=== PATIENT | male | born 1970 | race Caucasian/White ===

== ENCOUNTER 2019-10-09 02:47 | Emergency (ER) | payer SELFPAY ==
[2019-10-09 02:59] VITALS: BP 140/103; PULSE 86
--- NOTE | 2019-10-09 03:00 | EDM.PDOC ---
ED HPI GENERAL MEDICAL PROBLEM - General Chief Complaint: Gastrointestinal Problem Stated Complaint: ABDOMINAL PAIN/VOMITING/DIARRHEA Time Seen by Provider: 10/09/19 02:58 - History of Present Illness INITIAL COMMENTS - FREE TEXT/NARRATIVE: 49-year-old male presents the emergency room with nausea vomiting and diarrhea as well as some abdominal discomfort. This patient developed the symptoms around midnight tonight and he has had frequent vomiting and diarrhea. He just could not keep anything down. He has had some abdominal discomfort usually just before and after throwing up. Patient currently is not taking any medications he is unaware of any unusual food exposure. Patient has not had any burning or frequency with urination. Prior to the onset of the diarrhea he was not having any bowel problems. - Related Data Allergies Allergy/AdvReac Type Severity Reaction Status Date / Time No Known Allergies Allergy Verified 10/09/19 02:57 Home Meds: Home Meds Ondansetron [Zofran ODT] 4 mg PO Q6H PRN #15 tab.dis #2 Samples 10/09/19 [Rx] Past Medical History - Past Health History Medical/Surgical History: Denies Medical/Surgical History ED ROS GENERAL - Review of Systems Review Of Systems: See Below Constitutional: Reports: No Symptoms HEENT: Reports: No Symptoms Respiratory: Reports: No Symptoms Cardiovascular: Reports: No Symptoms Endocrine: Reports: No Symptoms GI/Abdominal: Reports: Abdominal Pain, Diarrhea, Nausea, Vomiting. Denies: No Symptoms : Reports: No Symptoms Musculoskeletal: Reports: No Symptoms Neurological: Reports: No Symptoms ED EXAM, GI/ABD - Physical Exam Exam: See Below Exam Limited By: No Limitations General Appearance: Alert, No Apparent Distress Head: Atraumatic, Normocephalic Neck: Normal Inspection, Supple, Non-Tender, Full Range of Motion Respiratory/Chest: No Respiratory Distress, Lungs Clear, Normal Breath Sounds Cardiovascular: Regular Rate, Rhythm, No Edema, No Murmur GI/Abdominal Exam: Normal Bowel Sounds, Soft, Non-Tender (He has no discomfort at the time of my exam). No: Guarding, Rigid, Rebound Back Exam: Normal Inspection, CVA Tenderness (L), CVA Tenderness (R) Extremities: Normal Inspection, No Pedal Edema Neurological: Alert, Oriented, Normal Cognition Course - Vital Signs Last Recorded V/S: Last Vital Signs Temp 36.1 C 10/09/19 02:58 Pulse 86 03/31/20 02:58 Resp 16 10/09/19 02:58 BP 140/103 H 10/09/19 02:58 Pulse Ox 97 10/09/19 02:58 - Orders/Labs/Meds Orders: Active Orders 24 hr Category Date Time Status Ondansetron [Zofran ODT] Med 10/09/19 04:29 Once 4 mg PO ONETIME ONE Medication Orders Ondansetron HCl (Zofran Odt) 4 mg PO ONETIME ONE Stop: 10/09/19 04:30 Labs: Laboratory Tests 10/09/19 10/09/19 Range/Units 03:18 03:18 WBC 13.83 H (4.23-9.07) K/mm3 RBC 5.01 (4.63-6.08) M/mm3 Hgb 15.7 (13.7-17.5) gm/dl Hct 45.2 (40.1-51.0) % MCV 90.2 (79.0-92.2) fl MCH 31.3 (25.7-32.2) pg MCHC 34.7 (32.2-35.5) g/dl RDW Std Deviation 40.4 (35.1-43.9) fL Plt Count 302 (163-337) K/mm3 MPV 8.2 L (9.4-12.3) fl Neut % (Auto) 85.0 H (34.0-67.9) % Lymph % (Auto) 6.7 L (21.8-53.1) % [place] % (Auto) 7.1 (5.3-12.2) % Eos % (Auto) 0.9 (0.8-7.0) Baso % (Auto) 0.1 (0.1-1.2) % Neut # (Auto) 11.76 H (1.78-5.38) K/mm3 Lymph # (Auto) 0.92 L (1.32-3.57) K/mm3 [place] # (Auto) 0.98 H (0.30-0.82) K/mm3 Eos # (Auto) 0.13 (0.04-0.54) K/mm3 Baso # (Auto) 0.01 (0.01-0.08) K/mm3 Manual Slide Review Abnormal smear Sodium 142 (136-145) mEq/L Potassium 3.8 (3.5-5.1) mEq/L Chloride 104 (98-107) mEq/L Carbon Dioxide 26 (21-32) mEq/L Anion Gap 15.8 H (5-15) BUN 14 (7-18) mg/dL Creatinine 0.9 (0.7-1.3) mg/dL Est Cr Clr Drug Dosing 91.81 mL/min Estimated GFR (MDRD) > 60 (>60) mL/min BUN/Creatinine Ratio 15.6 (14-18) Glucose 120 H (74-106) mg/dL Calcium 9.0 (8.5-10.1) mg/dL Total Bilirubin 0.4 (0.2-1.0) mg/dL AST 17 (15-37) U/L ALT 43 (16-63) U/L Alkaline Phosphatase 62 (46-116) U/L Total Protein 7.7 (6.4-8.2) g/dl Albumin 4.1 (3.4-5.0) g/dl Globulin 3.6 gm/dL Albumin/Globulin Ratio 1.1 (1-2) Lipase 103 (73-393) U/L Meds: Medications Generic Name Dose Route Start Last Admin Trade Name Freq PRN Reason Stop Dose Admin Ondansetron HCl 4 mg 10/09/19 04:29 Zofran Odt PO 10/09/19 04:30 ONETIME ONE Discontinued Medications Generic Name Dose Route Start Last Admin Trade Name Freq PRN Reason Stop Dose Admin Lactated Ringer's 1,000 mls @ 999 mls/hr 10/09/19 03:06 10/09/19 03:18 Ringers, Lactated IV 10/09/19 04:06 999 mls/hr .BOLUS ONE Administration Ondansetron HCl 4 mg 10/09/19 03:06 10/09/19 03:18 Zofran IVPUSH 10/09/19 03:07 4 mg ONETIME ONE Administration - Re-Assessments/Exams Free Text/Narrative Re-Assessment/Exam: 10/09/19 04:30 Abdominal pain gone he is doing much better with 4 mg Zofran and a liter of LR. We will give 4 mg of Zofran ODT now then a prescription to fill later today. Departure - Departure Time of Disposition: 04:31 Disposition: Home, Self-Care 01 Clinical Impression: Gastroenteritis - Discharge Information Referrals: PCP,None [Primary Care Provider] - Forms: ED Department Discharge, ED Return to Work/School Form Additional Instructions: Return to the emergency room with any questions problems or worsening symptoms. Clear liquid diet for the next 24 hours then slowly advance as tolerated. Use the Zofran as needed for nausea and vomiting. Sepsis Event Note - Focused Exam Vital Signs: Vital Signs Temp Pulse Resp BP Pulse Ox 10/09/19 02:58 36.1 C 86 16 140/103 H 97 Date Exam was Performed: 10/09/19 Time Exam was Performed: 04:30 - My Orders Last 24 Hours: My Active Orders 10/09/19 04:29 Ondansetron [Zofran ODT] 4 mg PO ONETIME ONE - Assessment/Plan Last 24 Hours: My Active Orders 10/09/19 04:29 Ondansetron [Zofran ODT] 4 mg PO ONETIME ONE
[2019-10-09] MEDS ORDERED: Lactated Ringers 1,000 ML IV ONE (03:06)
[2019-10-09] MEDS ORDERED: Ondansetron 4 MG/2 ML SDV IVPUSH ONE (03:06)
[2019-10-09] MEDS ORDERED: Ondansetron 4 MG Tab.DIS PO ONE (04:29)
== END 2019-10-09 04:43 | disposition home or self-care (01) ==
LOC: JD.ED 02:47
DX: K52.9 Noninfective gastroenteritis and colitis, unspecified (principal)
CPT/HCPCS: 36415; 80053; 83690; 85025; 96361; 96374; 99284; J2405; J7120; 99283

== ENCOUNTER 2020-02-16 13:52 | Emergency (ER) | payer OTHER ==
--- NOTE | 2020-02-16 14:34 | EDM.PDOC ---
ED HPI GENERAL MEDICAL PROBLEM - General Chief Complaint: Eye Problems Stated Complaint: FB IN EYE Time Seen by Provider: 02/16/20 14:34 Source of Information: Reports: Patient History Limitations: Reports: No Limitations - History of Present Illness INITIAL COMMENTS - FREE TEXT/NARRATIVE: 50-year-old male presents to the ED with foreign body sensation in his right eye since mid yesterday. Patient states he was grinding metal and in spite of wearing eye protection and a face shield a piece of metal did seem to enter his right eye. He flushed his eye vigorously last night once he got home from work and did think that he did get out of small metallic foreign body. However the eye continues to hurt overnight with excessive tearing and is extremely photosensitive today. Continues to have foreign body sensation right eye. Not wear contact lenses. Does wear eyeglasses. 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 Denies: Activity, Exercise (At the light.), Lifting, Sick Contact Associated Symptoms: Reports: No Other Symptoms Treatments PLANNING LEAD: Reports: Other (see below) (None.) Right Eye Pain Score (Numeric/FACES): 8 - Related Data Allergies Allergy/AdvReac Type Severity Reaction Status Date / Time No Known Allergies Allergy Verified 02/16/20 14:34 Home Meds: Home Meds . [No Known Home Meds] 02/16/20 [History] Past Medical History - Past Health History Medical/Surgical History: Denies Medical/Surgical History Social & Family History - Living Situation & Occupation Living situation: Reports: Occupation: Employed ED ROS GENERAL - Review of Systems Review Of Systems: See Below Constitutional: Reports: No Symptoms HEENT: Reports: Glasses Respiratory: Reports: No Symptoms Cardiovascular: Reports: No Symptoms Endocrine: Reports: No Symptoms GI/Abdominal: Reports: No Symptoms : Reports: Frequency Musculoskeletal: Reports: Shoulder Pain, Back Pain Skin: Reports: No Symptoms Neurological: Reports: No Symptoms Psychiatric: Reports: No Symptoms Hematologic/Lymphatic: Reports: No Symptoms Immunologic: Reports: No Symptoms ED EXAM GENERAL W FULL EYE - Physical Exam Exam: See Below Exam Limited By: No Limitations General Appearance: Alert, WD/WN, Mild Distress, Other (Keeps his eye on the right side nearly closed. It is very light sensitive. Temperature is 36.4. Pulse 96 and sinus respiratory is 20 with O2 sats of 98% on room air BP elevated 153 112 but did come down to 142 over) Eye Exam: Right Eye: Conjunctival Injection (Marked), Foreign Body (Metallic foreign body appreciated that 2 o'clock position 4 mm from the limbus.) Eyelids: Right: Normal Appearance, Lid Everted for Exam (Nor foreign bodies identified) Conjunctiva & Sclera: Right: Injected (Moderate.) Cornea Exam: Right: Foreign Body (Foreign body at the 2 o'clock position of the right cornea.) Extraocular Movements: Bilateral: Intact Pupils: Normal Accommodation Pupillary Size: Bilateral: 5 mm Pupillary Reaction: Bilateral: Brisk Anterior Chamber: Bilateral: Normal Appearance ED EYE w/ Add Procedure - Eye Procedure Alcaine Drops Administered: Yes Eye FB Removal: Removal w/ Cotton Swab (Part of the foreign body was removed with a cotton swab but the rest remain), Removal w/ Needle (The metallic foreign body came out in 4 separate pieces using a 23-gauge ne), Other (Slit lamp was utilized to make sure there was no residual rust ring and non) Antibiotic Oinment/Drps Admin: Right Eye Course - Vital Signs Last Recorded V/S: Last Vital Signs Temp 36.4 C 02/16/20 14:31 Pulse 96 02/16/20 14:31 Resp 20 02/16/20 14:31 BP 153/112 H 02/16/20 14:31 Pulse Ox 98 02/16/20 14:31 - Orders/Labs/Meds Meds: Medications Discontinued Medications Generic Name Dose Route Start Last Admin Trade Name Freq PRN Reason Stop Dose Admin Proparacaine HCl 10 ml 02/16/20 14:45 02/16/20 14:42 Proparacaine 0.5% Ophth Soln EYERT 02/16/20 14:46 2 drop ONETIME ONE Administration Proparacaine HCl Confirm 02/16/20 14:36 02/16/20 14:42 Proparacaine 0.5% Ophth Soln Administered 02/16/20 14:37 Not Given Dose 15 ml .ROUTE .English TVMED ONE - Radiology Interpretation Free Text/Narrative:: 50-year-old male presents to the ED with foreign body sensation right eye. This occurred yesterday afternoon while grinding metal. Examination does confirm a metallic foreign body embedded in the cornea at the 2 o'clock position. It was partially removed with a moistened Q-tip under proparacaine topical anesthesia. The rest had to be removed with a 23-gauge needle. Inspection of the cornea afterwards with a slit lamp revealed no foreign bodies or residual rust rings. Patient will be treated with ketorolac eyedrops 2 drops every 6 hours as needed for relief of pain and Cipro ophthalmic drops 2 drops every 8 hours for the next 2 days to prevent secondary infection. The eye will be double patch closed for the next 24 hours. Departure - Departure Time of Disposition: 15:01 Disposition: Home, Self-Care 01 Condition: Fair Clinical Impression: Foreign body of right cornea with residual material Qualifiers: Encounter type: initial encounter Qualified Code(s): T15.01XA - Foreign body in cornea, right eye, initial encounter - Discharge Information *PRESCRIPTION DRUG MONITORING PROGRAM REVIEWED*: Not Applicable *COPY OF PRESCRIPTION DRUG MONITORING REPORT IN PATIENT JAVI: Not Applicable Instructions: Eye Foreign Body, [id number] Referrals: PCP,None [Primary Care Provider] - Forms: ED Department Discharge Additional Instructions: Evaluation in the emergency room today in regards to foreign body sensation right eye since yesterday afternoon in the workplace. You identified a metallic foreign body may have injured your eye in the workplace yesterday afternoon. Yo u felt that you got a piece of metal out of your eye last night after irrigation. However the eye continues to hurt and is very photosensitive with excessive tearing today. Exam in the ED confirms a metallic foreign body embedded in the cornea at the 2 o'clock position. It was removed with the aid of topical proparacaine or numbing drops. Partially part of it came out with a moistened Q-tip but the rest had to be dug out with a tip of a needle. Slit- lamp exam reveals no residual foreign body or rust ring. The eye will now take at least 24 to 36 hours to heal completely. Suggest ketorolac eyedrops 2 drops every 6 hours necessary to relieve pain and inflammation. Use this for 1 day. Use ciprofloxacin eyedrops 2 drops to the eye every 8 hours for the next 2 days to prevent secondary infection. I should be patch closed until tomorrow morning. You may well have to wear sunglasses tomorrow if it is a bright day but then I should be back to normal by tomorrow evening. Sepsis Event Note (ED) - Focused Exam Vital Signs: Vital Signs Temp Pulse Resp BP Pulse Ox 02/16/20 14:31 36.4 C 96 20 153/112 H 98
[2020-02-16 14:35] VITALS: BP 153/112; PULSE 96
[2020-02-16] MEDS ORDERED: Proparacaine 0.5% Ophth Soln 15 ML Bottle ONE (14:36)
[2020-02-16] MEDS ORDERED: Proparacaine 0.5% Ophth Soln 15 ML Bottle EYERT ONE (14:45)
[2020-02-16] MEDS ORDERED: Ciprofloxacin 0.3% Ophth Soln 5 ML Bottle EYERT ONE (14:53)
[2020-02-16] MEDS ORDERED: Ketorolac 0.5% Ophth Soln 5 ML Bottle ONE (14:58)
[2020-02-16] MEDS ORDERED: Ketorolac 0.5% Ophth Soln 5 ML Bottle EYERT SCH (17:00)
== END 2020-02-16 15:11 | disposition home or self-care (01) ==
LOC: JD.ED 13:52
DX: T15.01XA Foreign body in cornea, right eye, initial encounter (principal)
CPT/HCPCS: 65222; 99283; A9270; 99282